=== PATIENT | female | born 1935 | race Caucasian/White ===

== ENCOUNTER 2018-11-12 01:42 | Inpatient (IN) | payer MEDICARE, OTHER ==
[2018-11-12 01:51] LABS: ADD MAN DIFF? NO
[2018-11-12 01:53] LABS: BASOPHIL # 0.1 10^3/ul (0.0-0.1); BASOPHILS % 0.4 % (0.0-2.0); EOSINOPHILS # 0.3 10^3/ul (0.0-0.5); EOSINOPHILS % 2.2 % (0.0-7.0); HEMATOCRIT 36.4 % (37.0-47.0); HEMOGLOBIN 11.7 g/dl (12.0-16.0); LYMPHOCYTES # 1.8 10^3/ul (0.8-2.9); LYMPHOCYTES % 12.2 % (15.0-51.0); MEAN CORPUSCULAR HEMOGLOBIN 28.8 pg (29.0-33.0); MEAN CORPUSCULAR HGB CONC 32.1 g/dl (32.0-37.0); MEAN CORPUSCULAR VOLUME 89.7 fl (82.0-101.0); MEAN PLATELET VOLUME 10.1 fl (7.4-10.4); MONOCYTES % 6.7 % (0.0-11.0); NEUTROPHIL # 11.3 10^3/ul (1.6-7.5); PLATELET COUNT 229 10^3/UL (140-415); RED BLOOD COUNT 4.06 10^6/ul (4.20-5.40); RED CELL DISTRIBUTION WIDTH 12.7 % (11.5-14.5)
[2018-11-12 01:53] LABS: WHITE BLOOD COUNT 14.5 10^3/ul (4.8-10.8)
[2018-11-12 02:10] LABS: ALANINE AMINOTRANSFERASE 15 IU/L (13-69); ALBUMIN 3.6 g/dl (3.3-4.9); ALBUMIN/GLOBULIN RATIO 0.78; ALKALINE PHOSPHATASE 90 IU/L (42-121); ANION GAP 8 (5-13); ASPARTATE AMINO TRANSFERASE 18 IU/L (15-46); BILIRUBIN,INDIRECT 0.5 mg/dl (0-1.1); BILIRUBIN,TOTAL 0.5 mg/dl (0.2-1.3); BLOOD UREA NITROGEN 13 mg/dl (7-20); CARBON DIOXIDE 28 mmol/L (21-31); CHLORIDE 101 mmol/L (97-110); CREATININE 0.87 mg/dl (0.44-1.00); GLUCOSE 219 mg/dl (70-220); LIPASE 38 U/L (23-300); POTASSIUM 4.3 mmol/L (3.5-5.1); SODIUM 137 mmol/L (135-144); TOTAL PROTEIN 8.2 g/dl (6.1-8.1)
[2018-11-12 02:12] LABS: INR 0.99; PROTIME 13.2 Sec (11.9-14.9)
[2018-11-12 02:13] LABS: PARTIAL THROMBOPLASTIN TIME 29.3 Sec (23.0-35.0)
[2018-11-12 02:22] LABS: B-TYPE NATRIURETIC PEPTIDE 1230 PG/ML (0-450); TROPONIN-I < 0.012 ng/ml (0.000-0.120)
[2018-11-12] MEDS: ALPRAZOLAM 0.25 MG TAB PO (02:38)
[2018-11-12] MEDS: ASPIRIN 81 MG TAB PO ×2 (02:38→08:42)
[2018-11-12] MEDS: FUROSEMIDE 40 MG INJ IV ×3 (02:38→17:16)
[2018-11-12] MEDS: ENALAPRILAT 1.25 MG INJ IV (02:39)
[2018-11-12] MEDS: NITROGLYCERIN (SL) 0.4 MG TAB SL (02:48)
[2018-11-12] MEDS ORDERED: NACL 0.9% 3 ML SYG IV (03:00)
[2018-11-12] MEDS ORDERED: ONDANSETRON 4 MG INJ IV (03:00)
[2018-11-12] MEDS ORDERED: NITROGLYCERIN (SL) 0.4 MG TAB SL (03:00)
[2018-11-12] MEDS ORDERED: DOCUSATE SODIUM 100 MG CAP PO (03:00)
[2018-11-12] MEDS ORDERED: BISACODYL (EC) 5 MG TAB PO (03:00)
[2018-11-12] MEDS ORDERED: GLUCOSE GEL 15 GRAM TUBE BUCCAL (04:30)
[2018-11-12] MEDS ORDERED: DEXTROSE 50% 50 ML SYRINGE IV ×2 (04:30)
[2018-11-12] MEDS ORDERED: GLUCAGON 1 MG INJ IM (04:30)
[2018-11-12] MEDS ORDERED: GLUCOSE GEL 15 GRAM TUBE PO ×2 (04:30)
[2018-11-12] MEDS: INSULIN ASPART [NOVOLOG] 3 ML PEN SC ×4 (07:58→20:58)
[2018-11-12] MEDS: AMLODIPINE 10 MG TAB PO (08:43)
[2018-11-12] MEDS: LOSARTAN 25 MG TAB PO ×2 (08:43→20:59)
[2018-11-12] MEDS: ENOXAPARIN 40 MG/0.4 ML SYG SC (08:45)
[2018-11-12 08:56] LABS: CREATINE KINASE 30 IU/L (23-200)
[2018-11-12] MEDS ORDERED: FUROSEMIDE 40 MG INJ IV (09:00)
[2018-11-12 09:09] LABS: CK INDEX 2.1; CK-MB 0.64 ng/ml (0.0-2.4); TROPONIN-I 0.014 ng/ml (0.000-0.120)
[2018-11-12 09:47] LABS: PROCALCITONIN 0.09 ng/mL (0.00-0.10)
[2018-11-12] MEDS: INSULIN GLARGINE [LANTus] (100 UNITS/ML) SYG SC (11:51)
[2018-11-12 14:51] LABS: CREATINE KINASE 31 IU/L (23-200)
[2018-11-12 15:03] LABS: CK INDEX 2.2; CK-MB 0.68 ng/ml (0.0-2.4); TROPONIN-I < 0.012 ng/ml (0.000-0.120)
[2018-11-13] MEDS: ACCU-CHEK XX (02:00)
[2018-11-13 06:20] LABS: ADD MAN DIFF? NO
[2018-11-13 06:30] LABS: BASOPHILS % 0.5 % (0.0-2.0); EOSINOPHILS # 0.3 10^3/ul (0.0-0.5); EOSINOPHILS % 3.4 % (0.0-7.0); HEMATOCRIT 36.2 % (37.0-47.0); HEMOGLOBIN 11.6 g/dl (12.0-16.0); LYMPHOCYTES # 1.3 10^3/ul (0.8-2.9); LYMPHOCYTES % 15.4 % (15.0-51.0); MEAN CORPUSCULAR HEMOGLOBIN 29.1 pg (29.0-33.0); MEAN PLATELET VOLUME 10.6 fl (7.4-10.4); MONOCYTE # 0.9 10^3/ul (0.3-0.9); MONOCYTES % 10.2 % (0.0-11.0); NEUTROPHIL # 5.9 10^3/ul (1.6-7.5); NEUTROPHILS % 69.9 % (39.0-77.0); PLATELET COUNT 223 10^3/UL (140-415); RED BLOOD COUNT 3.98 10^6/ul (4.20-5.40); RED CELL DISTRIBUTION WIDTH 12.5 % (11.5-14.5)
[2018-11-13 06:30] LABS: WHITE BLOOD COUNT 8.4 10^3/ul (4.8-10.8)
[2018-11-13 06:34] LABS: IRON 44 ug/dl (35-150)
[2018-11-13] MEDS: FUROSEMIDE 40 MG INJ IV ×2 (06:36→18:36)
[2018-11-13] MEDS: LEVOTHYROXINE 25 MCG TAB PO (06:37)
[2018-11-13 06:41] LABS: ANION GAP 7 (5-13); BLOOD UREA NITROGEN 19 mg/dl (7-20); CARBON DIOXIDE 34 mmol/L (21-31); CHLORIDE 98 mmol/L (97-110); CREATININE 0.95 mg/dl (0.44-1.00); GLUCOSE 112 mg/dl (70-220); MAGNESIUM 1.8 mg/dl (1.7-2.5); POTASSIUM 3.8 mmol/L (3.5-5.1); SODIUM 139 mmol/L (135-144)
[2018-11-13 06:44] LABS: % IRON SATURATION 17 % SAT (22-52); TOTAL IRON BINDING CAPACITY 258 ug/dl (241-421)
[2018-11-13 06:58] LABS: HDL CHOLESTEROL 32 mg/dl (33-92); LDL CHOLESTEROL,CALCULATED 72 mg/dl; TRIGLYCERIDES 123 mg/dl (0-149)
[2018-11-13 06:58] LABS: CHOLESTEROL 129 mg/dl (100-200); HEMOGLOBIN A1C 7.2 % (0-5.9)
[2018-11-13] MEDS: INSULIN ASPART [NOVOLOG] 3 ML PEN SC ×4 (07:46→20:35)
[2018-11-13] MEDS: ENOXAPARIN 40 MG/0.4 ML SYG SC (08:32)
[2018-11-13] MEDS: ASPIRIN 81 MG TAB PO (08:34)
[2018-11-13] MEDS: AMLODIPINE 10 MG TAB PO (08:35)
[2018-11-13] MEDS: LOSARTAN 25 MG TAB PO ×2 (08:36→20:34)
[2018-11-13] MEDS: INSULIN GLARGINE [LANTus] (100 UNITS/ML) SYG SC (08:55)
[2018-11-13 15:27] LABS: FOLATE 15.5 ng/ml (2.8-20.0)
[2018-11-14] MEDS: ACCU-CHEK XX (02:00)
[2018-11-14] MEDS: ACETAMINOPHEN 325 MG TAB PO ×3 (03:56→20:36)
[2018-11-14] MEDS: LOSARTAN 25 MG TAB PO ×2 (05:40→20:36)
[2018-11-14] MEDS: FUROSEMIDE 40 MG INJ IV (05:40)
[2018-11-14 06:12] LABS: ADD MAN DIFF? NO
[2018-11-14 06:26] LABS: WHITE BLOOD COUNT 9.5 10^3/ul (4.8-10.8)
[2018-11-14 06:26] LABS: BASOPHILS % 0.3 % (0.0-2.0); EOSINOPHILS # 0.3 10^3/ul (0.0-0.5); EOSINOPHILS % 2.8 % (0.0-7.0); HEMATOCRIT 34.8 % (37.0-47.0); HEMOGLOBIN 11.2 g/dl (12.0-16.0); LYMPHOCYTES # 1.2 10^3/ul (0.8-2.9); LYMPHOCYTES % 12.9 % (15.0-51.0); MEAN CORPUSCULAR HEMOGLOBIN 28.8 pg (29.0-33.0); MEAN CORPUSCULAR HGB CONC 32.2 g/dl (32.0-37.0); MEAN CORPUSCULAR VOLUME 89.5 fl (82.0-101.0); MEAN PLATELET VOLUME 10.9 fl (7.4-10.4); MONOCYTES % 10.6 % (0.0-11.0); NEUTROPHILS % 72.9 % (39.0-77.0); PLATELET COUNT 220 10^3/UL (140-415); RED BLOOD COUNT 3.89 10^6/ul (4.20-5.40); RED CELL DISTRIBUTION WIDTH 12.6 % (11.5-14.5)
[2018-11-14 07:07] LABS: ANION GAP 6 (5-13); BLOOD UREA NITROGEN 25 mg/dl (7-20); CALCIUM 8.9 mg/dl (8.4-10.2); CARBON DIOXIDE 34 mmol/L (21-31); CHLORIDE 97 mmol/L (97-110); CREATININE 1.03 mg/dl (0.44-1.00); GLUCOSE 214 mg/dl (70-220); POTASSIUM 3.9 mmol/L (3.5-5.1); SODIUM 137 mmol/L (135-144)
[2018-11-14] MEDS: LEVOTHYROXINE 25 MCG TAB PO (07:39)
[2018-11-14] MEDS: INSULIN ASPART [NOVOLOG] 3 ML PEN SC ×4 (07:59→21:00)
[2018-11-14] MEDS: ASPIRIN 81 MG TAB PO (09:13)
[2018-11-14] MEDS: INSULIN GLARGINE [LANTus] (100 UNITS/ML) SYG SC (09:17)
[2018-11-14] MEDS: AMLODIPINE 10 MG TAB PO (09:21)
[2018-11-14] MEDS: ENOXAPARIN 40 MG/0.4 ML SYG SC (09:24)
[2018-11-14] MEDS: FUROSEMIDE 20 MG TAB PO (17:59)
[2018-11-15] MEDS: ACCU-CHEK XX (02:00)
[2018-11-15] MEDS: ACETAMINOPHEN 325 MG TAB PO ×3 (03:00→13:16)
[2018-11-15 05:40] LABS: ADD MAN DIFF? NO
[2018-11-15 05:43] LABS: WHITE BLOOD COUNT 6.9 10^3/ul (4.8-10.8)
[2018-11-15 05:43] LABS: BASOPHILS % 0.4 % (0.0-2.0); EOSINOPHILS # 0.3 10^3/ul (0.0-0.5); EOSINOPHILS % 4.8 % (0.0-7.0); HEMATOCRIT 36.4 % (37.0-47.0); HEMOGLOBIN 11.6 g/dl (12.0-16.0); LYMPHOCYTES # 1.4 10^3/ul (0.8-2.9); LYMPHOCYTES % 20.1 % (15.0-51.0); MEAN CORPUSCULAR HEMOGLOBIN 28.6 pg (29.0-33.0); MEAN CORPUSCULAR HGB CONC 31.9 g/dl (32.0-37.0); MEAN CORPUSCULAR VOLUME 89.7 fl (82.0-101.0); MEAN PLATELET VOLUME 10.6 fl (7.4-10.4); MONOCYTE # 0.7 10^3/ul (0.3-0.9); MONOCYTES % 9.6 % (0.0-11.0); NEUTROPHIL # 4.5 10^3/ul (1.6-7.5); NEUTROPHILS % 64.8 % (39.0-77.0); PLATELET COUNT 207 10^3/UL (140-415); RED BLOOD COUNT 4.06 10^6/ul (4.20-5.40); RED CELL DISTRIBUTION WIDTH 12.4 % (11.5-14.5)
[2018-11-15 06:16] LABS: ANION GAP 7 (5-13); BLOOD UREA NITROGEN 26 mg/dl (7-20); CALCIUM 9.3 mg/dl (8.4-10.2); CARBON DIOXIDE 35 mmol/L (21-31); CHLORIDE 97 mmol/L (97-110); CREATININE 0.99 mg/dl (0.44-1.00); GLUCOSE 277 mg/dl (70-220); SODIUM 139 mmol/L (135-144)
[2018-11-15] MEDS: FUROSEMIDE 20 MG TAB PO ×2 (06:26→18:48)
[2018-11-15] MEDS: LEVOTHYROXINE 25 MCG TAB PO (06:26)
[2018-11-15] MEDS: LOSARTAN 25 MG TAB PO ×2 (08:28→21:06)
[2018-11-15] MEDS: ASPIRIN 81 MG TAB PO (08:28)
[2018-11-15] MEDS: AMLODIPINE 10 MG TAB PO (08:29)
[2018-11-15] MEDS: ENOXAPARIN 40 MG/0.4 ML SYG SC (09:06)
[2018-11-15] MEDS: INSULIN GLARGINE [LANTus] (100 UNITS/ML) SYG SC (09:06)
[2018-11-15] MEDS: INSULIN ASPART [NOVOLOG] 3 ML PEN SC ×5 (09:06→21:00)
[2018-11-16] MEDS: ACCU-CHEK XX (02:00)
[2018-11-16] MEDS: ACETAMINOPHEN 325 MG TAB PO ×2 (04:41→12:13)
[2018-11-16 05:32] LABS: ADD MAN DIFF? NO
[2018-11-16 05:41] LABS: BASOPHILS % 0.5 % (0.0-2.0); EOSINOPHILS # 0.3 10^3/ul (0.0-0.5); EOSINOPHILS % 4.5 % (0.0-7.0); HEMATOCRIT 33.6 % (37.0-47.0); HEMOGLOBIN 10.8 g/dl (12.0-16.0); LYMPHOCYTES # 1.6 10^3/ul (0.8-2.9); LYMPHOCYTES % 20.8 % (15.0-51.0); MEAN CORPUSCULAR HEMOGLOBIN 28.6 pg (29.0-33.0); MEAN CORPUSCULAR HGB CONC 32.1 g/dl (32.0-37.0); MEAN CORPUSCULAR VOLUME 88.9 fl (82.0-101.0); MEAN PLATELET VOLUME 10.4 fl (7.4-10.4); MONOCYTE # 0.7 10^3/ul (0.3-0.9); MONOCYTES % 9.1 % (0.0-11.0); NEUTROPHIL # 4.9 10^3/ul (1.6-7.5); NEUTROPHILS % 64.8 % (39.0-77.0); PLATELET COUNT 236 10^3/UL (140-415); RED BLOOD COUNT 3.78 10^6/ul (4.20-5.40); RED CELL DISTRIBUTION WIDTH 12.4 % (11.5-14.5)
[2018-11-16 05:41] LABS: WHITE BLOOD COUNT 7.6 10^3/ul (4.8-10.8)
[2018-11-16 06:04] LABS: ANION GAP 7 (5-13); BLOOD UREA NITROGEN 30 mg/dl (7-20); CALCIUM 9.1 mg/dl (8.4-10.2); CARBON DIOXIDE 34 mmol/L (21-31); CHLORIDE 97 mmol/L (97-110); CREATININE 1.01 mg/dl (0.44-1.00); GLUCOSE 219 mg/dl (70-220); POTASSIUM 4.3 mmol/L (3.5-5.1); SODIUM 138 mmol/L (135-144)
[2018-11-16] MEDS: FUROSEMIDE 20 MG TAB PO (06:51)
[2018-11-16] MEDS: LEVOTHYROXINE 25 MCG TAB PO (06:51)
[2018-11-16] MEDS: ASPIRIN 81 MG TAB PO (08:22)
[2018-11-16] MEDS: LOSARTAN 25 MG TAB PO (08:23)
[2018-11-16] MEDS: AMLODIPINE 10 MG TAB PO (08:23)
[2018-11-16] MEDS: ENOXAPARIN 40 MG/0.4 ML SYG SC (08:32)
[2018-11-16] MEDS: INSULIN GLARGINE [LANTus] (100 UNITS/ML) SYG SC (08:32)
[2018-11-16] MEDS: INSULIN ASPART [NOVOLOG] 3 ML PEN SC ×4 (08:33→12:00)
== END 2018-11-16 15:04 | disposition home health service (06) | DRG 291 ==
LOC: E/R 01:42 → 6WM 02:35
DX: I11.0 Hypertensive heart disease with heart failure (principal); I50.31 Acute diastolic (congestive) heart failure; E11.9 Type 2 diabetes mellitus without complications; D64.9 Anemia, unspecified; E03.9 Hypothyroidism, unspecified; Z79.4 Long term (current) use of insulin; Z79.82 Long term (current) use of aspirin; Z91.14 Patient's other noncompliance with medication regimen
CPT/HCPCS: 36415; 71045; 80048; 80053; 80061; 82306; 82550; 82553; 82607; 82746; 82962; 83036; 83540; 83690; 83735; 83880; 84145; 84443; 84484; 85025; 85610; 85730; 93306; 94660; 97110; 97161; 97165; 99285-25